=== PATIENT | male | born 2000 | race Caucasian/White ===

== ENCOUNTER → 2018-04-05 | Outpatient (CLI) | payer BC, OTHER ==
--- NOTE | 2018-04-05 08:43 | US ---
EXAMINATION TYPE: US liver DATE OF EXAM: 04/05/2018 COMPARISON: US 2014 CLINICAL HISTORY: B18.2 Chronic viral hepatitis C. Chronic Hep C EXAM MEASUREMENTS: Liver Length: 14.0 cm Gallbladder Wall: 0.2 cm CBD: 0.2 cm Right Kidney: 11.1 x 4.9 x 4.8 cm Pancreas: Obscured by bowel gas Liver: wnl Gallbladder: wnl Evidence for sonographic Johnson's sign: No CBD: wnl Right Kidney: wnl IMPRESSION: No worrisome intrahepatic mass or intrahepatic ductal dilatation is identified.
[2018-04-05 09:03] LABS: HCT 45.1 % (39.0-53.0); HGB 14.5 gm/dL (13.0-17.5); MCH 28.1 pg (25.0-35.0); MCHC 32.2 g/dL (31.0-37.0); MCV 87.3 fL (80.0-100.0); Mean Platelet Volume 7.2; Platelet Count 283 k/uL (150-450); RBC 5.16 m/uL (4.30-5.90); RDW 13.2 % (11.5-15.5); WBC 5.4 k/uL (4.0-11.0)
[2018-04-05 09:19] LABS: Prothrombin Time 10.7 sec (9.0-12.0)
[2018-04-05 09:26] LABS: Albumin 4.2 g/dL (3.5-5.0); Bilirubin,Unconjugated 0.4 mg/dL (0.0-1.1); Total Bilirubin 0.4 mg/dL (0.2-1.3)
== END | disposition home or self-care (01) ==
LOC: RADUSWWP 08:14
DX: B18.2 Chronic viral hepatitis C (principal)
CPT/HCPCS: 36415; 76705; 80076; 85027; 85610; 87522

== ENCOUNTER → 2019-03-09 | Outpatient (CLI) | payer BC, OTHER ==
[2019-03-09 18:51] LABS: Albumin 4.9 g/dL (3.80-4.90); Albumin/Globulin Ratio 2.45 (1.60-3.17); Bilirubin, Conjugated 0.2 mg/dL (0.20-0.40); Bilirubin,Unconjugated 0.3 mg/dL; Total Bilirubin 0.5 mg/dL (0.3-1.2); Total Protein 6.9 g/dL (6.2-8.2)
[2019-03-11 15:05] LABS: Hepatits C Virus RNA Not detected (Not detected); Hepatits C Virus RNA, Quant <12 IU/mL (<12); LOG HCV IU/mL <1.08 (<1.08)
== END | disposition home or self-care (01) ==
LOC: LABWHC1 14:02
DX: B18.2 Chronic viral hepatitis C (principal)
CPT/HCPCS: 36415; 80076; 87522